=== PATIENT | male | born 1950 | race Caucasian/White ===

== ENCOUNTER 2025-08-18 08:46 | Outpatient (CLI) | payer OTHER ==
--- NOTE | 2025-08-18 18:47 | CARDIOLOGY REPORT ---
APPROVED REPORT EXAM: Comprehensive 2D, Doppler, and color-flow Echocardiogram. Patient Location: OUT-PATIENT Blood Pressure: 103/53 mmHg Heart Rate: 66 bpm Rhythm: SINUS Indications CORONARY ARTERY DISEASE STENT X1 07/14/25 [facility] Order Administrator: Bobbi Tapia MD Previous echo: none available 2D Dimensions RVDd 4.3 cm IVSd 1.2 (0.7-1.1cm) LVDd 5.0 cm PWd 1.3 (0.7-1.1cm) IVSs 1.3 (0.8-1.2cm) LVDs 3.7 (2.5-4.0cm) PWs 1.6 (0.8-1.2cm) LVOT Diameter 1.95 (1.8-2.4cm) LVEF(%) 58.7 (>50%) IVC 16.29 mm FS (%) 25.9 % SV 60.6 ml M-Mode Dimensions Left Atrium(MM) 4.32 (2.5-4.0cm) Aortic Root 3.34 (2.2-3.7cm) Aortic Cusp Exc 1.90 (1.5-2.0cm) Aortic Valve AoV Peak Chuck. 213.9 cm/s AoV VTI 50.8 cm AO Peak GR. 18.3 mmHg AO Mean GR. 10 mmHg LVOT VTI 32.56 cm LVOT Peak Chuck. 138.5 cm/s KAREN (VMAX) 1.94 cm2 KAREN (VTI) 1.92 cm2 Mitral Valve MV E Velocity 76.4 cm/s MV DECEL TIME 187 ms MV A Velocity 84.4 cm/s MV PHT 58 ms E/A Ratio 0.9 MVA (PHT) 3.81 cm2 TDI E/Medial E' 11.5 Tricuspid Valve TR P. Velocity 244 cm/s RAP ESTIMATE 5 mmHg TR Peak Gr. 24 mmHg RVSP 29 mmHg Pulmonary Vein S2 Velocity 67.79 cm/s PVa Duration 108 msec LEFT VENTRICLE Normal LV size and function. Mild concentric hypertrophy. LVEF is 55-60%. RIGHT VENTRICLE RV is moderately dilated with normal systolic function. ATRIA Left atrium is mildly dilated. Right atrium appears moderately dilated. AORTIC VALVE Trileaflet AV appears mildly sclerotic without stenosis or insufficiency. MITRAL VALVE Mild MV annular calcification and leaflet thickening without stenosis. Trace regurgitation. TRICUSPID VALVE TV appears structurally normal with mild regurgitation. PULMONIC VALVE Normal PV without stenosis, physiologic insufficiency. GREAT VESSELS Aortic root is normal in size. Ascending aorta is not well visualized. The IVC is normal in size and collapses greater than 50% with inspiration. PERICARDIUM Normal pericardium. No effusion. Other Information Study Quality: Adequate Conclusion Normal LV size and function. Mild concentric hypertrophy. LVEF is 55-60%. RV is moderately dilated with normal systolic function. Left atrium is mildly dilated. Right atrium appears moderately dilated. Trileaflet AV appears mildly sclerotic without stenosis or insufficiency. Mild MV annular calcification and leaflet thickening without stenosis. Trace regurgitation. TV appears structurally normal with mild regurgitation. Normal PV without stenosis, physiologic insufficiency. Normal pericardium. No effusion.
== END 2025-08-18 23:59 | disposition home or self-care (01) ==
LOC: RAD 08:46
PROVIDERS: ATTEND Chiropractor
DX: I08.8 Other rheumatic multiple valve diseases (principal); I51.7 Cardiomegaly; I25.10 Atherosclerotic heart disease of native coronary artery without angina pectoris
CPT/HCPCS: 93306